=== PATIENT | female | born 1985 | race Hispanic/Latino ===

== ENCOUNTER 2019-09-24 22:35 | Emergency (ER) | payer SELFPAY ==
[2019-09-24] MEDS ORDERED: Dexamethasone 10 MG/ML VIAL ONE (22:59)
[2019-09-24] MEDS ORDERED: Acetaminophen 500 MG TAB ONE (22:59)
[2019-09-24] MEDS ORDERED: Bicillin LA 1.2 MILLION UNITS/2 ML SYRINGE ONE (22:59)
== END 2019-09-24 23:13 | disposition home or self-care (01) ==
LOC: ERS 22:35
DX: J02.0 Streptococcal pharyngitis (principal); F17.210 Nicotine dependence, cigarettes, uncomplicated
CPT/HCPCS: 96372; 99283; J0561; J1100